=== PATIENT | male | born 1985 | race Hispanic/Latino ===

== ENCOUNTER 2019-02-07 06:55 | Emergency (ER) | payer OTHER ==
[2019-02-07 07:18] VITALS: BP 116/71
[2019-02-07] MEDS ORDERED: IBUPROFEN PO ONE (07:42)
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
== END 2019-02-07 10:04 | disposition home or self-care (01) ==
LOC: ED 06:55
DX: S62.91XA Unspecified fracture of right hand, initial encounter for closed fracture (principal); S86.912A Strain of unspecified muscle(s) and tendon(s) at lower leg level, left leg, initial encounter; S13.4XXA Sprain of ligaments of cervical spine, initial encounter; Z79.1 Long term (current) use of non-steroidal anti-inflammatories (NSAID); Z79.899 Other long term (current) drug therapy; V89.2XXA Person injured in unspecified motor-vehicle accident, traffic, initial encounter; Y93.89 Activity, other specified; Y92.488 Other paved roadways as the place of occurrence of the external cause; Y99.8 Other external cause status